=== PATIENT | male | born 1960 | race Caucasian/White ===

== ENCOUNTER 2023-03-16 09:07 | Day surgery (SDC) | payer OTHER ==
[~2023-03-16] VITALS: Ht 193 cm; Wt 130.2 kg
[~2023-03-16 09:07] MED LIST: ADAL40IN SC; ALB2.5IS NEB; ALBUAER3 IN; ASPI-543 PO; ATE50T PO; BACL10TA PO; CHLO25TA2 PO; ESOM40CA39 PO; FAMO-12 PO; FOLI400T5 PO; IBUP200C95 PO; ISOS10TA5 PO; LOSA100T58 PO; NITR0.4S29 SL; POM; PRE1T PO; SIMV80TA17 PO; TAMS0.4C36 PO; [UNRECOGNIZED DRUG - CODE] SC
[2023-03-16] MEDS ORDERED: LIDOCAINE 2%HCL (LOCAL ANESTH.) INJ 20ML MDV ONE (09:53)
[2023-03-16] MEDS ORDERED: IODIXANOL 320MG/ML 100ML BTL IV ONE (09:53)
[2023-03-16] MEDS ORDERED: SODIUM CHL 0.9% 0 ML ONE (09:53)
[2023-03-16] MEDS ORDERED: MIDAZOLAM HCL 2MG/2ML 2ml VIAL (1mg/ml) ONE (09:53)
[2023-03-16] MEDS ORDERED: ANGIOMAX 250 MG VIAL IV ONE (09:53)
[2023-03-16] MEDS ORDERED: fentaNYL CITRATE 100 MCG/2 ML VL ONE (09:53)
[2023-03-16] MEDS ORDERED: VERAPAMIL 2.5MG/ML INJ 2ML VIAL IV ONE (09:53)
[2023-03-16] MEDS ORDERED: HEPARIN SODIUM (PORCINE) 5000 UNITS/ML 1ML VIAL ONE (10:36)
== END 2023-03-16 12:48 | disposition home or self-care (01) ==
LOC: CATH 09:07
PROVIDERS: ATTEND Internal Medicine
DX: R94.39 Abnormal result of other cardiovascular function study (principal); I25.119 Atherosclerotic heart disease of native coronary artery with unspecified angina pectoris; M06.9 Rheumatoid arthritis, unspecified; I50.22 Chronic systolic (congestive) heart failure; I11.0 Hypertensive heart disease with heart failure; J44.9 Chronic obstructive pulmonary disease, unspecified; F15.90 Other stimulant use, unspecified, uncomplicated; E66.01 Morbid (severe) obesity due to excess calories; Z68.35 Body mass index [BMI] 35.0-35.9, adult; Z79.1 Long term (current) use of non-steroidal anti-inflammatories (NSAID); Z95.5 Presence of coronary angioplasty implant and graft; Z82.49 Family history of ischemic heart disease and other diseases of the circulatory system; Z79.82 Long term (current) use of aspirin; Z79.899 Other long term (current) drug therapy; Z98.890 Other specified postprocedural states
CPT/HCPCS: 93459; C1769; C1894; J1644; J2250; J3010; Q9967; 93458; 99152; 99153